=== PATIENT | male | born 1990 | race Hispanic/Latino ===

== ENCOUNTER 2022-04-01 15:39 | Emergency (ER) | payer OTHER ==
[2022-04-01 16:58] VITALS: BP 113/88
--- NOTE | 2022-04-01 17:18 | NUR ---
CRITICAL LAB POSITIVE FOR STREP, REPORTED TO EDP, DR. ROQUE.
[2022-04-01] MEDS ORDERED: BICILLIN L-A IM STA (18:34)
--- NOTE | 2022-04-01 18:38 | ER.PDOC ---
General Chief Complaint: Sore Throat Stated Complaint: SORE THROAT,HEADACHE Time seen by MD: 18:36 Source: patient Exam Limitations: no limitations History of Present Illness Initial Comments Pt presents c/o worsening sore throat for the past 24hrs. No improvement with otc medications. Timing/Duration: this morning Associated Symptoms: mod sore throat Severity: moderate Allergies: Coded Allergies: No Known Allergies (Unverified , 04/01/22) Past Medical History Medical History: no pertinent history Surgical History: no surgical history Social History Alcohol Use: none Drug Use: none Constitutional: denies chills; malaise Eyes: denies pain, denies photophobia Ears: denies dizziness Nose: denies congestion Mouth: denies loose teeth, denies pain Throat: other (ore throat) Respiratory: denies cough, denies shortness of breath, denies wheezing Cardiovascular: denies chest pain, denies palpitations Gastrointestinal: denies abdominal pain, denies nausea, denies vomiting Musculoskeletal: denies back pain, denies joint pain, denies muscle pain Skin: denies rash Neurological: denies headache All Other Systems: Reviewed and Negative Physical Exam General Appearance: alert, no distress Head/Neck: head nml inspection, neck nml inspection, trachea midline, no lymphadenopathy, thyroid nml Eyes: eyes nml inspection, PERRL, no nystagmus Mouth: lips, gums nml, no drooling, no thrush, membranes nml Throat: pharyngeal erythema Ears/Nose: nml inspection Respiratory: no resp. distress, lungs clear CVS: reg. rate & rhythm, heart sounds nml Abdomen: non-tender, no organomegaly Extremities: non-tender, ROM nml Skin Exam: Normal Color, Warm/Dry NEURO/PSYCH: oriented X3, mood/effect nml Results/Orders Results/Orders Orders - JAYSON ROQUE MD Strep Screen (04/01/22 17:06) Penicillin G Benzathine (Bicillin L-A) (04/01/22 18:34) Penicillin G Benzathine (Bicillin L-A) (04/01/22 18:44) Vital Signs Date Time Temp Pulse Resp B/P (MAP) Pulse Ox O2 Delivery O2 Flow Rate FiO2 04/01/22 18:50 98.4 57 16 112/88 (96) 98 Room Air* 0 21 04/01/22 16:58 98.4 62 18 98 04/01/22 16:58 98.4 62 18 113/88 (96) 98 Room Air* 0 21 04/01/22 16:58 98.4 62 18 Administered Medications Medications (Trade) Dose Ordered Sig/Khushboo Route PRN Reason Start Time Stop Time Status Last Admin Dose Admin Penicillin G Benzathine (Bicillin L-A) 1,200,000 unit STAT STAT IM 04/01/22 18:34 04/01/22 18:35 DC 04/01/22 18:45 1,200,000 UNIT Laboratory Tests Test 04/01/22 16:58 Group A Streptococcus Screen POSITIVE (NEGATIVE) A ER DEPART Departure Time of Disposition: 18:37 Disposition: 01 HOME / SELF CARE / HOMELESS Impression: Primary Impression: Strep pharyngitis Condition: Stable Patient Instructions: Strep Throat Tests-Brief Referrals: PCP,UNKNOWN (PCP) PRIMARY CARE PROVIDER Additional Instructions: Fever and pain precautions advised Duration or Time Spent with Pa: 10 mins Return to Work/School Can a patient return to work?: Yes (in 4 days) JAYSON ROQUE MD April 01, 2022 18:38
[2022-04-01] MEDS ORDERED: BICILLIN L-A IM ONE (18:44)
[2022-04-01 18:50] VITALS: BP 112/88
== END 2022-04-01 19:00 | disposition home or self-care (01) ==
LOC: ER 15:39
DX: J02.0 Streptococcal pharyngitis (principal)
CPT/HCPCS: 87880; 96372; 99283; J0561

== ENCOUNTER 2023-01-19 09:03 | Emergency (ER) | payer BC ==
[~2023-01-19] VITALS: Ht 165.1 cm; Wt 68.0 kg
[2023-01-19 09:05] VITALS: BP_SYST 107; BP_SYST 160; BP_DIAS 60; BP_DIAS 62
--- NOTE | 2023-01-19 09:05 | NUR ---
ARRIVAL PATIENT ARRIVED TO [facility], C/O GENERALIZED ABDOMEN PAIN SINCE LAST NIGHT, DENIES TAKING ANY MEDICATIONS KA[place]WH[place], CAME TO THE ED FOR EVAL, VITAL SIGNS TAKEN AND DOCTOR NOTIFIED OF PATIENT'S ARRIVAL.
[2023-01-19] MEDS ORDERED: TORADOL ONE (09:15)
[2023-01-19] MEDS ORDERED: ZOFRAN ONE (09:15)
[2023-01-19] MEDS: TORADOL IV STA (09:18)
[2023-01-19] MEDS: ZOFRAN IV STA (09:18)
[2023-01-19 09:22] LABS: BASOPHIL % 0.2 % (0.0-0.2); EOSINOPHIL # 0.2 10^3/uL (0.0-0.2); EOSINOPHIL % 1.6 % (0.0-5.0); LYMPHOCYTES # 0.97 10^3/uL1 (1.0-4.8); LYMPHOCYTES % 9.4 % (24.0-44.0); MEAN CORP HGB 31.8 pg (26-34); MONOCYTES # 0.5 10^3/uL (0.3-0.8); MONOCYTES % 5.1 % (5.0-12.0); NEUTROPHIL # 8.6 10^3/uL (1.8-7.7); NEUTROPHILS % 83.7 % (41.0-85.0); RED CELL DISTRIBUTION WIDTH 12.2 % (11.5-14.5)
[2023-01-19 09:23] LABS: BILIRUBIN,URINE NEGATIVE (NEGATIVE); UROBILINOGEN,URINE 0.2 E.U./dL (0.2)
[2023-01-19 09:43] LABS: CARBON DIOXIDE 33.7 mmol/L (20.0-32)
[2023-01-19 10:35] VITALS: BP 112/71
--- NOTE | 2023-01-19 10:41 | DIREP ---
PROCEDURE:CT ABDOMEN/PELVIS W/O CONTRAST COMPARISON:None. INDICATIONS:abd pain TECHNIQUE:Axial images were created through the abdomen and pelvis without intravenous contrast material. No oral contrast was administered. Sagittal and coronal reconstructions were performed from source images. FINDINGS: LUNG BASES:Normal. No visible pulmonary or pleural disease. LIVER:Normal. No significant liver lesions are identified. BILIARY:Normal. No visible dilatation or calcification. PANCREAS:Normal. No lesion, fluid collection, ductal dilatation, or atrophy. SPLEEN:Normal. No enlargement or focal lesion. ADRENALS:Normal. No mass or enlargement. URINARY TRACT:Normal. No focal lesions or hydronephrosis. AORTA/VASCULAR:Normal. No aneurysm. RETROPERITONEUM:Normal. No mass or adenopathy. BOWEL/MESENTERY:Normal. There is no intestinal obstruction, free fluid, free air or mesenteric inflammatory changes. The appendix is normal. ABDOMINAL WALL:Small fat containing right inguinal hernia. PELVIC ORGANS:Normal prostate and urinary bladder. BONES:Normal for age. No bony lesion or acute fracture. OTHER:Negative. CONCLUSION: 1. No acute intra-abdominal abnormality. 2. Small fat containing right inguinal hernia. Dictated by: Arpit Deal M.D. on 01/19/2023 at 10:35 AM
--- NOTE | 2023-01-19 10:58 | ER.PDOC ---
General Chief Complaint: Abdomen Pain Stated Complaint: ABD PAIN Time seen by MD: 09:05 Source: patient Exam Limitations: no limitations History of Present Illness Initial Comments Patient is a 32-year-old male with no or reported past medical history who comes in with right lower quadrant abdominal pain with associated nausea vomiting and mild diarrhea over the past 3 days.Patient states that the past 3 days he started having right lower quadrant abdominal pain states that it is sore in nature made worse with movement palpation better with rest. Patient states he has associated symptoms of mild nausea has vomited couple times and he says that he has had some a couple of soft watery diarrhea. He denies any other symptoms or concerns at this time. He does not know really what makes the nausea and vomiting worse. Allergies: Coded Allergies: No Known Allergies (Unverified , 04/01/22) Vital Signs First Vital Signs Date Time Temp Pulse Resp B/P (MAP) Pulse Ox O2 Delivery O2 Flow Rate FiO2 01/19/23 09:05 98.0 74 18 107/60 (76) 99 Room Air* 0 21 Last Vital Signs Date Time Temp Pulse Resp B/P (MAP) Pulse Ox O2 Delivery O2 Flow Rate FiO2 01/19/23 10:35 98.0 62 18 112/71 (85) 99 Room Air* 0 21 Past Medical History Medical History: no pertinent history Surgical History: no surgical history Family History Significant Family History: no pertinent family hx Social History Smoking: non-smoker Alcohol Use: none Drug Use: none Reviewed Nursing Reviewed: Vital Signs, Abn. Noted, Nursing Assessment Constitutional: no symptoms reported EENTM: no symptoms reported Respiratory: no symptoms reported Cardiovascular: no symptoms reported Gastrointestinal: abdominal pain, diarrhea, nausea, vomiting Genitourinary: no symptoms reported Musculoskeletal: no symptoms reported Skin: no symptoms reported Psychiatric/Neurological: no symptoms reported Endocrine: no symptoms reported Hematologic/Lymphatic: no symptoms reported Physical Exam General Appearance: No Apparent Distress, WD/WN HEENT: PERRL/EOMI, Normal ENT Inspection, TMs Normal, Pharynx Normal Neck: Non-Tender, Full Range of Motion, Supple, Normal Inspection Respiratory: chest non-tender, lungs clear, normal breath sounds, no respiratory distress, no accessory muscle use Cardiovascular: Normal Peripheral Pulses, Regular Rate, Rhythm, No Edema, No Gallop, No JVD, No Murmur Gastrointestinal: Normal Bowel Sounds, Soft, Tenderness (Right lower quadrant mild) Male Genitalia: Normal Genitalia (Uncircumcised), Inguinal Tenderness (Right- sided small inguinal hernia palpable soft reducible no skin changes) Back: Normal Inspection, No CVA Tenderness, No Vertebral Tenderness Extremities: Normal Range of Motion, Non-Tender, Normal Inspection, No Pedal Edema, No Calf Tenderness, Normal Capillary Refill, Pelvis Stable 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 (01/19/23 09:08) PT (01/19/23 09:08) Partial Thromboplastin Time. (01/19/23 09:08) Urinalysis (01/19/23 09:08) Saline Lock (01/19/23 09:08) Ct Abd/Pelvis Wo Iv Contrast (01/19/23 09:08) Ketorolac Tromethamine (Toradol) (01/19/23 09:08) Ondansetron Hcl/Pf (Zofran) (01/19/23 09:08) Ondansetron Hcl/Pf (Zofran) (01/19/23 09:15) Ketorolac Tromethamine (Toradol) (01/19/23 09:15) Vital Signs Date Time Temp Pulse Resp B/P (MAP) Pulse Ox O2 Delivery O2 Flow Rate FiO2 01/19/23 10:35 98.0 62 18 112/71 (85) 99 Room Air* 0 21 01/19/23 09:05 98.0 74 18 01/19/23 09:05 98.0 74 18 99 01/19/23 09:05 98.0 74 18 107/60 (76) 99 Room Air* 0 21 Administered Medications Medications (Trade) Dose Ordered Sig/Khushboo Route PRN Reason Start Time Stop Time Status Last Admin Dose Admin Ketorolac Tromethamine (Toradol) 15 mg OT STAT IV 01/19/23 09:08 01/19/23 09:10 DC 01/19/23 09:18 15 MG Ondansetron HCl (Zofran) 4 mg OT STAT IV 01/19/23 09:08 01/19/23 09:10 DC 01/19/23 09:18 4 MG Laboratory Tests Test 01/19/23 09:12 White Blood Count 10.3 10^3/uL (4.5-11.0) Red Blood Count 5.12 10^6/uL (4.50-5.90) Hemoglobin 16.3 g/dL (13.9-16.3) Hematocrit 48.4 % (37.0-53.0) Mean Corpuscular Volume 94.5 fL (78-100) Mean Corpuscular Hemoglobin 31.8 pg (26-34) Mean Corpuscular Hemoglobin Concent 33.7 g/dL (33-36.5) Red Cell Distribution Width 12.2 % (11.5-14.5) Platelet Count 286 10^3/uL (150-400) Mean Platelet Volume 10.4 fL (7.8-11.0) Neutrophils (%) (Auto) 83.7 % (41.0-85.0) Lymphocytes (%) (Auto) 9.4 % (24.0-44.0) L Monocytes (%) (Auto) 5.1 % (5.0-12.0) Neutrophils # (Auto) 8.6 10^3/uL (1.8-7.7) H Lymphocytes # (Auto) 0.97 10^3/uL1 (1.0-4.8) L Monocytes # (Auto) 0.5 10^3/uL (0.3-0.8) Absolute Immature Granulocyte (auto 0.01 10^3 u/L (0-2) Absolute Eosinophils (auto) 0.2 10^3/uL (0.0-0.2) Immature Granulocytes % 0.10 % (0.00-0.50) Eosinophils % 1.6 % (0.0-5.0) Basophils % 0.2 % (0.0-0.2) Basophils # 0.0 10^3/uL (0.0-0.1) Prothrombin Time 10.3 SEC (9.1-11.5) Prothrombin Time INR (Non-Therap) 1.0 Activated Partial Thromboplast Time 27.0 SEC (22.5-33.1) Urine Collection Type UNKNOWN Urine Color YELLOW Urine Appearance CLEAR Urine Bilirubin NEGATIVE (NEGATIVE) Urine Ketones NEGATIVE (NEGATIVE) Urine Specific [place] 1.020 (1.005-1.030) Urine pH 8.5 (4.5-8.0) Urine Protein TRACE (NEGATIVE) Urine Urobilinogen 0.2 E.U./dL (0.2) Urine Nitrate NEGATIVE (NEGATIVE) Urine Leukocyte Esterase NEGATIVE (NEGATIVE) Urine Glucose (Auto)(UA) NEGATIVE (NEGATIVE) Urine Blood NEGATIVE (NEGATIVE) Sodium Level 139 mmol/L (132-145) Potassium Level 4.0 mmol/L (3.6-5.2) Chloride Level 100.0 mmol/L (96-109) Carbon Dioxide Level 33.7 mmol/L (20.0-32) H Anion Gap 9.3 Blood Urea Nitrogen 16 mg/dL (7-18) Creatinine 1.00 mg/dL (0.59-1.40) Estimated GFR () 103.5 (>/=60) Est GFR (CKD-EPI)(Non-Afr [place]) 85.5 (>/=60) BUN/Creatinine Ratio 16.0 Glucose Level 108 mg/dL (70-110) Calcium Level 9.5 mg/dL (8.4-10.5) Total Bilirubin 0.8 mg/dL (0.2-1.0) Aspartate Amino Transferase (AST) 15 U/L (0-35) Alanine Aminotransferase (ALT) 37 U/L (12-78) Alkaline Phosphatase 77 U/L (50-136) Total Protein 8.4 g/dL (6.4-8.2) H Albumin 4.4 g/dL (3.4-5.0) Globulin 4.0 Albumin/Globulin Ratio 1.100 Lipase 45 U/L (16-77) Progress Progress All labs imaging interpreted by me Patient has right lower quadrant abdominal pain he does have a hernia that can be palpable thus we must get a CT scan of the abdomen need to also rule out surgical abdomen including appendicitis do not think that there is any testicular pathology based on exam we will also obtain labs and continue to monitor patient. My interpretation of patient's work-up is as follows looking at his CT scan you can see the small hernia on the right side radiology later agreed with my interpretation showing no acute injury or abdominal abnormality but they also see a small fat-containing right inguinal hernia. Looking at patient's labs his chemistry is all within normal limits as is his CBC as is his urine as are his coags. [id number] states that he is doing better work-up reassuring will discharge patient with primary care as well as surgery follow-up - He voiced understanding when to follow-up and when to return to the ER we will discharge patient with ketorolac and Zofran for symptomatic control. ER DEPART Departure Time of Disposition: 11:07 Disposition: 01 HOME / SELF CARE / HOMELESS Impression: Primary Impression: Inguinal hernia Condition: Improved Patient Instructions: Inguinal Hernia, Adult Referrals: PCP,UNKNOWN (PCP) PRIMARY CARE PROVIDER Additional Instructions: Follow-up with your primary care provider within the next week. If you have any new persistent or worsening symptoms or concerns seek medical attention. Please take medications as prescribed. As discussed you will also need to follow-up with the surgeon you can see any like or you can see Dr. Tellez here by calling [phone] to set up an appointment. Duration or Time Spent with Pa: 45 Problem Qualifiers Primary Impression: Inguinal hernia Obstruction and gangrene presence: without obstruction or gangrene Laterality: unilateral Recurrence: not specified as recurrent Qualified Codes: K40.90 - Unilateral inguinal hernia, without obstruction or gangrene, not specified as recurrent ARIANA NUGENT MD Jan 19, 2023 10:58
[2023-01-19 11:15] VITALS: BP 95/56
== END 2023-01-19 11:26 | disposition home or self-care (01) ==
LOC: ER 09:03
DX: K40.90 Unilateral inguinal hernia, without obstruction or gangrene, not specified as recurrent (principal)
CPT/HCPCS: 99284; 74176; 96374; 96375; 80053; 85025; 36415; 81001; 83690; 85610; 85730; J2405; J1885